=== PATIENT | female | born 1935 | race Caucasian/White ===

== ENCOUNTER → 2016-07-18 | Outpatient (CLI) | payer MEDICARE ==
[2016-07-18 10:00] LABS: ALT 20 U/L (9-52); AST 22 U/L (14-36); Alkaline Phosphatase 90 U/L (38-126); Anion Gap 11 mmol/L; Blood Urea Nitrogen 17 mg/dL (7-17); Calcium 9.5 mg/dL (8.4-10.2); Carbon Dioxide 26 mmol/L (22-30); Chloride 104 mmol/L (98-107); Cholesterol 244 mg/dL (<200); Glucose 95 mg/dL (74-99); HDL Cholesterol 48 mg/dL (40-60); Non-African American GFR(MDRD) >60 (>60 ml/min/1.73 sqM); Potassium 4.4 mmol/L (3.5-5.1); Sodium 141 mmol/L (137-145); Total Protein 6.9 g/dL (6.3-8.2); Triglycerides 220 mg/dL (<150)
== END | disposition home or self-care (01) ==
LOC: LABWHC1 08:58
PROVIDERS: ATTEND Internal Medicine
DX: Z00.00 Encounter for general adult medical examination without abnormal findings (principal)
CPT/HCPCS: 36415; 80053; 80061

== ENCOUNTER → 2016-09-13 | Outpatient (CLI) | payer MEDICARE ==
--- NOTE | 2016-09-13 13:23 | XR ---
EXAMINATION TYPE: XR cervical spine comp DATE OF EXAM: 09/13/2016 1:16 PM COMPARISON: NONE HISTORY: Pain TECHNIQUE: Four views are submitted. This includes flexion and extension lateral views. FINDINGS: The odontoid is intact. There are no compression deformities. The prevertebral soft tissue structur es are within normal limits. Diffuse osteopenia noted. Calcifications overlying the upper chest bila terally. Underlying COPD suspected. Prominence of the right paratracheal suprahilar region noted. Calcification soft tissue the neck likely vascular. There is a 2 mm anterolisthesis of C4 on C5 with findings suggestive of fusion and C5-C6. Moderate de generative disc disease C3-4 and C4-C5. Severe facet arthropathy at levels C3-C6. Alignment is demonstrated to the level of C7. There is nonspecific truncation of the spinous process of C3. IMPRESSION: 1. Postsurgical change with multilevel degenerative disc disease and severe facet arthropathy. Sergei listhesis of C4 on 5 and appears stable on flexion and extension.
== END | disposition home or self-care (01) ==
LOC: RADXRMAIN 12:57
PROVIDERS: ATTEND Psychiatry & Neurology Neurology
DX: M43.12 Spondylolisthesis, cervical region (principal); M50.30 Other cervical disc degeneration, unspecified cervical region; M46.82 Other specified inflammatory spondylopathies, cervical region; Z98.1 Arthrodesis status
CPT/HCPCS: 72050

== ENCOUNTER → 2016-11-25 | Outpatient (CLI) | payer MEDICARE ==
[2016-11-25 12:22] LABS: Blood Urea Nitrogen 16 mg/dL (7-17); Non-African American GFR(MDRD) >60 (>60 ml/min/1.73 sqM)
== END | disposition home or self-care (01) ==
LOC: LABWHC1 11:21
PROVIDERS: ATTEND Orthopaedic Surgery Orthopaedic Surgery of the Spine
DX: Z01.818 Encounter for other preprocedural examination (principal)
CPT/HCPCS: 36415; 82565; 84520

== ENCOUNTER → 2016-12-12 | Outpatient (CLI) | payer MEDICARE ==
[2016-12-12 11:33] LABS: Basophils # (A) 0.1 k/uL (0-0.2); Basophils % (A) 1 %; CH 31.2; CHCM 33.1; Eosinophils # (A) 0.3 k/uL (0-0.7); Eosinophils % (A) 3 %; HCT 43.2 % (34.0-46.0); HDW 2.21; HGB 13.9 gm/dL (11.4-16.0); Luc # (Auto) 0.18; Luc % (Auto) 2; Lymphocytes # (A) 1.2 k/uL (1.0-4.8); Lymphocytes % (A) 13 %; MCH 30.4 pg (25.0-35.0); MCHC 32.2 g/dL (31.0-37.0); MCV 94.6 fL (80.0-100.0); Mean Platelet Volume 7.7; Monocytes # (A) 0.5 k/uL (0-1.0); Monocytes % (A) 5 %; Neutrophils # (A) 7.1 k/uL (1.3-7.7); Neutrophils % (A) 77 %; RBC 4.57 m/uL (3.80-5.40); RDW 13.7 % (11.5-15.5); WBC 9.2 k/uL (3.8-10.6); WBC (Perox) 9.23
[2016-12-12 16:04] LABS: Erythrocyte Sedimentation Rate 20 mm/hr (0-20)
== END | disposition home or self-care (01) ==
LOC: LABWHC1 11:09
PROVIDERS: ATTEND Physical Medicine & Rehabilitation
DX: M50.220 Other cervical disc displacement, mid-cervical region, unspecified level (principal); M50.120 Mid-cervical disc disorder, unspecified level; M47.812 Spondylosis without myelopathy or radiculopathy, cervical region; M43.12 Spondylolisthesis, cervical region; M43.22 Fusion of spine, cervical region
CPT/HCPCS: 36415; 85025; 85652; 86140

== ENCOUNTER → 2017-12-22 | Outpatient (CLI) | payer MEDICARE | END | disposition home or self-care (01) | LOC: LABWHC1 12:58 | PROVIDERS: ATTEND Psychiatry & Neurology Neurology | DX: M62.81 Muscle weakness (generalized) (principal) | CPT/HCPCS: 36415; 82550; 85652 ==

== ENCOUNTER → 2018-07-09 | Outpatient (CLI) | payer MEDICARE | END | disposition home or self-care (01) | LOC: RADMRIMAIN 13:49 | PROVIDERS: ATTEND Psychiatry & Neurology Neurology | DX: Z53.9 Procedure and treatment not carried out, unspecified reason (principal) ==

== ENCOUNTER → 2018-07-17 | Outpatient (CLI) | payer MEDICARE ==
--- NOTE | 2018-07-17 13:05 | MR ---
EXAMINATION TYPE: MR cervical spine wo/w con DATE OF EXAM: 07/17/2018 COMPARISON: 09/13/2016 cervical spine x-rays HISTORY: Myelopathy, 4th finger trigger finger, Numbness in lt foot, Kush UE numbness and tingling TECHNIQUE: Multiplanar, multisequence images of the cervical spine were acquired utilizing 7 mL intravenous Gada vist gadolinium contrast. Diffusion weighted imaging was performed. FINDINGS: There is osseous fusion of the C5 and C6 vertebral bodies. Again there is 1 to 2 mm grade 1 anterolisthesis of C4 on C5. Remainder the alignment within the cervical spine is maintained. Bone m arrow signal is within normal limits. Incidentally noted partially empty sella turcica. Multilevel di sc desiccation is seen. C2-C3: There is a left paracentral disc herniation and ligamentum flavum buckling creating moderate s edna canal stenosis without neural foraminal narrowing. C3-C4: There is ligamentum flavum buckling and a central disc osteophyte complex creating moderate to severe spinal canal stenosis. Uncovertebral hypertrophy and facet arthropathy is additionally create moderate bilateral neural foraminal narrowing. C4-C5: There is a broad-based disc bulge, ligamentum flavum buckling and central disc osteophyte comp sha in combination with facet arthropathy and uncovertebral hypertrophy creating moderate right and s evere left neural foraminal narrowing and moderate spinal canal stenosis. C5-C6: There is surgical fusion and no remaining intervertebral discs. Elongated small osteophyte is seen posterior to the C5 and C6 vertebral bodies creating mild spinal canal stenosis. C6-C7: There is ligamentum flavum buckling and a broad-based disc bulge as well as central disc osteo phyte complex creating severe spinal canal stenosis and moderate to severe bilateral neural foraminal narrowing. C7-T1: There is mild disc desiccation without spinal canal stenosis nor neural foraminal narrowing. Degenerative disc disease is seen at T2-T3, T3-T4 and T4-T5 although suboptimally visualized as this is only seen on the sagittal view. No abnormal spinal cord signal is appreciated within the upper cervical spine however at C6-C7 there is subtle hyperintensity within the spinal cord at C6-C7 where there is severe spinal canal stenosis. There is no abnormal enhancement or expansion of the cord therefore this relates to mild myelomalaci a and cord atrophy. No abnormal postcontrast enhancement is seen throughout the cervical spine although the postcontrast images are slightly limited by motion. IMPRESSION: 1. Mild myelomalacia at C6-C7 as a result of a central disc osteophyte complex, broad-based disc bulg e, and extensive ligamentum flavum buckling. Degenerative change also contributes to moderate to diego re bilateral neural foraminal narrowing at this levels. 2. Left paracentral disc herniation at C2-C3 creating moderate spinal canal stenosis. 3. Severe spinal canal stenosis with moderate bilateral neural foraminal narrowing at C3-C4 created b y ligamentum flavum buckling and a broad-based disc bulge. 4. Osseous fusion at C5-C6 with elongated osteophyte creating mild spinal canal stenosis. 5. Moderate spinal canal stenosis, moderate right neural foraminal narrowing and severe left neural f oraminal narrowing at C4-C5 secondary to ligamentum flavum buckling and a broad-based disc bulge with degenerative change. 6. Stable minimal grade 1 anterolisthesis of C4 and C5.
== END | disposition home or self-care (01) ==
LOC: RADMRIMAIN 11:45
PROVIDERS: ATTEND Psychiatry & Neurology Neurology
DX: M48.02 Spinal stenosis, cervical region (principal); M50.01 Cervical disc disorder with myelopathy, high cervical region; M47.12 Other spondylosis with myelopathy, cervical region; G95.89 Other specified diseases of spinal cord; M43.12 Spondylolisthesis, cervical region
CPT/HCPCS: 72156; A9585

== ENCOUNTER → 2018-09-20 | Outpatient (CLI) | payer MEDICARE | END | disposition home or self-care (01) | LOC: LABWHC1 09:58 | PROVIDERS: ATTEND Physician Assistant | DX: E87.5 Hyperkalemia (principal) | CPT/HCPCS: 36415; 84132 ==

== ENCOUNTER → 2018-12-17 | Outpatient (CLI) | payer MEDICARE ==
--- NOTE | 2018-12-17 18:41 | MR ---
EXAMINATION TYPE: MR brain wo con DATE OF EXAM: 12/17/2018 COMPARISON: NONE HISTORY: Cerebral infarction, rt hand numbness TECHNIQUE: T1-weighted sagittal, T2, FLAIR, and diffusion axial, and T2 coronal coronal views of the brain are submitted. FINDINGS: There is no evidence of acute ischemia. There is a 1 cm left parotid soft tissue nodule which ultraso und is recommended. Signal noted within the petrous ridge on the left is stable from the prior exam of 2012 Changes of chronic sinusitis noted. [id number] generalized degenerative changes seen. There is both diffuse and numerous focal areas of abnormal signal seen scattered throughout the white matter b ilaterally which demonstrates mild to moderate progression from the prior exam. Hyperostosis of the c alvarium noted. Craniocervical junction maintained. Sella turcica has a normal appearance. No cerebellopontine angle mass. IMPRESSION: 1. No acute intracranial process. 2. Degenerative and nonspecific white matter changes most typical of remote white matter ischemia enoch ears to demonstrate a mild to moderate progression from the prior exam. 3. Stable petrous apex lesion unchanged from the prior exam which may be on the basis of a cholestero l granuloma or petrous apicitis 4. There is a new 1 cm left parotid mass for which ultrasound ps suggested.
== END | disposition home or self-care (01) ==
LOC: RADMRIMAIN 17:06
PROVIDERS: ATTEND Internal Medicine
DX: R90.89 Other abnormal findings on diagnostic imaging of central nervous system (principal); G93.9 Disorder of brain, unspecified
CPT/HCPCS: 70551

== ENCOUNTER → 2019-01-24 | Outpatient (CLI) | payer MEDICARE ==
--- NOTE | 2019-01-25 10:10 | US ---
EXAMINATION TYPE: US thyroid st tissue head/neck DATE OF EXAM: 01/24/2019 COMPARISON: NONE CLINICAL HISTORY: R22.1 SWELLING,MASS AND LUMP OF NECK. TECHNIQUE: Targeted ultrasound was performed of the left parotid region with right parotid region sca n for comparison. Grayscale and color flow were obtained. FINDINGS: Within the region of the left parotid gland there is a peripherally solid and centrally cys tic mass with internal vascular flow measuring 1.2 x 1.0 x 1.1 cm. This does not have a typical appea nathaniel of a lymph node and is a suspicious mass. This is superficially located just beneath the dermis . This does not appear to extend into the skin surface. Remainder of the parotid gland appears unrema rkable. 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 Percutaneous biopsy co uld be performed. CT neck could be performed prior to biopsy for better anatomic delineation as it is uncertain the relation to the remainder of the parotid gland.
== END | disposition home or self-care (01) ==
LOC: RADUSWWP 16:01
PROVIDERS: ATTEND Internal Medicine
DX: K11.8 Other diseases of salivary glands (principal)
CPT/HCPCS: 76536

== ENCOUNTER → 2019-02-21 | Outpatient (CLI) | payer MEDICARE ==
--- NOTE | 2019-02-22 13:15 | CT ---
EXAMINATION TYPE: CT soft tissue neck w con DATE OF EXAM: 02/21/2019 COMPARISON: None HISTORY: Left side neck/facial mass and swelling. BB placed on region of interest. CT DLP: 328.7 mGycm CONTRAST: Patient injected with 100ml mL of Isovue 300. TECHNIQUE: Axial images at 3 mm thick sections. Reconstructed images in the coronal plane and sagitt al plane are reviewed. FINDINGS: Limited CT sections are obtained the lung apices. The lung apices appear clear. CT neck: The torus tubarius and fossa of Rosenmuller are normal. Lead Relay Tester spaces are normal. Para nasal sinuses and mastoid air cells are clear. At the level marked by the BB there appears to be a 1.1 cm ring lesion just posterior to the masticat or muscles and anterior to the parotid gland. A large lymph node is likely present at this level. No additional suspicious adenopathy is evident. Parotid glands appear normal and symmetrical. Submandibular glands, are normal. Parapharyngeal spac es are normal. No suspicious adenopathy is evident. The hypopharynx appears within normal limits. Vocal cord level appear symmetrical. Thyroid as visualized is normal. Osseous structures are normal. IMPRESSIONS: 1. Enlarged lymph node on the left neck at the level of palpable abnormality.
== END | disposition home or self-care (01) ==
LOC: RADCTMAIN 16:35
PROVIDERS: ATTEND Otolaryngology
DX: R59.9 Enlarged lymph nodes, unspecified (principal)
CPT/HCPCS: 82565; 84520; 70491; 36415; Q9967

== ENCOUNTER 2019-05-03 08:43 | Day surgery (SDC) | payer MEDICARE ==
[2019-05-01 12:00] VITALS: BMI 25.4
--- NOTE | 2019-05-03 01:58 | HP ---
HISTORY AND PHYSICAL CHIEF COMPLAINT: Left facial mass. HISTORY OF PRESENT ILLNESS: Patient is a pleasant 83-year-old female who was recently seen in my office complaining of having swelling in the left side of her face, which had been there for at least several weeks. She described the area as nontender. At the time that she was seen in my office she had a previous MRI and ultrasound, which showed that the mass was solid. Clinical examination of the area revealed that the patient on the left side of the face in the region of the left parotid gland had approximately 1-1.1 cm mass, which was nontender, non fluctuant and quite mobile. A CT scan of the neck was subsequently obtained and it revealed the mass to be most likely superficial to the left parotid gland. Therefore, it was recommended the patient undergo excision of left facial/parotid mass under general anesthesia. PAST MEDICAL HISTORY: Past medical history reveals: ALLERGY: TO CIPRO. MEDICATION: Her current medications include Synthroid, Combivent, gabapentin, and baclofen. REVIEW OF SYMPTOMS: Reveals the cardiovascular systems is negative. RESPIRATORY SYSTEM: Is positive for COPD. Gastrointestinal system is negative. Metabolic/endocrine system is positive for hypothyroidism. MUSCULOSKELETAL SYSTEM is positive osteoarthritis. The remainder of the review of systems is unremarkable. PHYSICAL EXAMINATION: This patient is a very pleasant 83-year-old female who is alert, cooperative and well- oriented to time and place. HEENT examination the patient is normocephalic. Tympanic membranes are normal. Middle ear spaces are free of any fluid or infection. Pupils equal, round, and reactive to light and accommodation. Extraocular movements within normal limits. Intranasal examination reveals moderate to severe septal deviation, compensatory hypertrophy of the inferior turbinates. Examination of oropharynx unremarkable. Examination of left facial area with attention to the left parotid region reveals the patient has a 1-1.5 cm, well-circumscribed, mobile, nontender, nonfluctuant mass located over the central area of the left parotid gland. No other associated neck masses are noted. Cranial nerves 2 through 12 and the remainder of the head and neck exam are within normal limits. Chest/cardiovascular: Both lung lund are clear to percussion and auscultation. The patient is in regular sinus rhythm, S1 and S2 are present without evidence of any murmurs S3s or S4. Peripheral pulses are bilaterally symmetrical. ABDOMEN: There is no evidence any masses, megaly or tenderness. ABDOMEN: Soft. Skin is unremarkable. Musculoskeletal, and neurological within normal limits. Pelvic/rectal examination is deferred at this time because the patient has this done on a regular basis at her family physician's office. The remainder of the physical exam is essentially unremarkable. IMPRESSION: Left facial/parotid mass. PLAN: The patient is scheduled undergo excision of left facial/parotid mass under general anesthesia. Attention RNs in the pre-surgical area: I have ordered for this patient to receive 2 g of Ancef IV to be given once an intravenous line has been established. If the pharmacy department sends a different pre-surgical prophylactic antibiotic to the pre-surgical area for this patient, that order should be cancelled and the medication should be returned to the pharmacy department and make sure that the patient's account is credited appropriately. In addition, I have ordered for the patient to receive 1000 mg of Ofirmev to be given once an intravenous line has been established. I have discussed the risks, benefits and alternative therapies for the above-mentioned procedure and for both sedation/analgesia as well as necessary blood product administration, if indicated, as they pertain to this patient. The patient has indicated his or her understanding and acceptance of the risks and procedures discussed. MMODL / IJN: [id number] /
[~2019-05-03 08:43] MED LIST: DEXAMETHASONE SOD PHOSPHATE 10 MG/ML 1 ML VIAL IV ONE; HYDROmorphone 0.5 MG/0.5 ML SYRINGE IVP PRN; LACTATED RINGERS 1,000 ML IV SCH; MIDAZOLAM 2 MG/2 ML VIAL IV PRN; ONDANSETRON 4 MG/2 ML VIAL IVP ONE; Pre Op ABX Message 1 EACH MISC MISCELLANE ONE
[2019-05-03] MEDS ORDERED: ACETAMINOPHEN IV (For NPO) 1,000 MG in EMPTY BAG 1 BAG IVPB ONE (09:45)
[2019-05-03] MEDS ORDERED: GLYCOPYRROLATE 0.2 MG/ML 2 ML VIAL ONE (09:56)
[2019-05-03] MEDS ORDERED: NEOSTIGMINE 1 MG/ML 10 ML VIAL ONE (09:56)
[2019-05-03] MEDS ORDERED: PROPOFOL 10 MG/ML 20 ML VIAL IV ONE (09:56)
[2019-05-03] MEDS ORDERED: LIDOCAINE 1% INJ 10MG/ML (20 ML MDV) ONE (09:56)
[2019-05-03] MEDS ORDERED: SUCCINYLCHOLINE CHLORIDE 100 MG/5 ML SYR IV ONE (09:56)
[2019-05-03] MEDS ORDERED: ROCURONIUM BROMIDE 10 MG/ML 10 ML VIAL IV ONE (09:56)
[2019-05-03] MEDS ORDERED: fentaNYL (PF) 50 MCG/ML 2 ML AMP ONE (09:56)
[2019-05-03] MEDS ORDERED: ePHEDrine SULFATE/0.9% NACL/PF 50 MG/5 ML SYRINGE IV ONE (09:56)
[2019-05-03] MEDS ORDERED: BACITRACIN 500 UNIT/GM OINT 28.4 GM TUBE TOPICAL ONE (11:47)
[2019-05-03] MEDS ORDERED: LACTATED RINGERS 1,000 ML IV ONE (12:03)
[2019-05-03 12:29] VITALS: TEMP 97.6
[2019-05-03 13:12] VITALS: RESP 16
[2019-05-03 13:50] VITALS: PULSE 62
[2019-05-03 13:51] VITALS: BP 139/82
--- NOTE | 2019-05-07 05:09 | OP ---
OPERATIVE REPORT DATE OF SERVICE: 05/03/2019 PREOPERATIVE DIAGNOSIS: Left facial/parotid mass. POSTOPERATIVE DIAGNOSIS: Left facial/parotid mass (approximately 1.5 cm in diameter), final pathology pending. ANESTHESIA: General. OPERATIVE PROCEDURE: Excision of left facial/parotid gland mass (1.5 cm). OPERATING SURGEON: Dr. Wayne. COMPLICATIONS: None. ESTIMATED BLOOD LOSS: Less than 25 mL. OPERATIVE PROCEDURE: Patient was placed on the operating table in the supine position. After uneventful induction and endotracheal intubation, satisfactory general anesthesia was obtained. Next, the patient's left magdiel face was prepped and draped down to the level of the clavicles. The lesion in question was palpated and the proposed incision was outlined using a [employer] marking pen so as to place the incision in one of the patient's natural resting skin tension line. Doing so should afford the best cosmetic result on the face. The proposed incision was outlined in an elliptical fashion. This was done so that the overlying skin would be left attached to the underlying mass and could be used to maneuver the mass and aid with excision. Next, using a #15 scalpel, incision was made through skin down to the level of the subcutaneous tissue following the previously outlined incision. Hemostasis was controlled with low wattage electrocautery at all times. Next, using combination of blunt and sharp dissection with mosquito hemostats and peanuts, the dissection was obtained continued down below the subcutaneous tissue into the subcutaneous fat down to the level of the fascia that was investing the mass. The fascia was carefully dissected away from the mass down to the level of the masseter muscle. The dissection was carried out initially superiorly, working deeply and around the mass in the usual and customary fashion. Any bleeders that were encountered were lightly cauterized with electrocautery. The dissection was quite slow and tedious because there was some inflammatory response around the mass which caused it to be somewhat adherent to the surrounding fatty tissue. This dissection was slow, but continued in a very a cautious manner and the mass was subsequently excised with the overlying strip of skin in a complete fashion and the specimen was sent to pathology in formalin. Inspection revealed no active bleeding and the wound defect, which was quite deep, was irrigated using electrocautery. During this dissection, care was taken to make sure that no neural structures such as branches of the facial nerve were injured at any time. The facial nerve was known at this point to be quite deep to the mass that was excised. The size of mass was approximately 1.5 cm. The wound defect was closed in multiple layers using a 4-0 rapid absorbing Vicryl to reapproximate the deep layers of tissue in the fascial layers of tissue. Muscle layers were reapproximated using another layer of 4-0 rapid absorbing Vicryl suture. Next, the subcutaneous fat was approximated using 4-0 rapid absorbing Vicryl in an interrupted buried fashion. Next, the subcutaneous tissue and skin were approximated using interrupted 4-0 rapid absorbing Vicryl suture in a buried fashion. Having done the last layer of sutures, the skin edges approximated quite nicely. However, it was decided to put 2 sutures, one at the superior and inferior aspect of the incision. The inferior and superior closures were done with surgical justen with the inferior staple being applied somewhat loosely to allow for any potential drainage. Bacitracin ointment was applied to the incision and no dressing was applied. At this point, the procedure was terminated. Estimated blood loss was between 20 and 25 mL. There were no intraoperative complications. At no point were any neurological structures injured or traumatized. The specimen was sent to pathology in formalin. It is to be noted that this procedure which started approximately at 10:10 a.m. ended at approximately 12:15 for a total operating time of approximately 2 hours. The reason for the extended operating time was because of the slow dissection caused by the inflammatory response of this mass with the surrounding tissues. The patient tolerated the procedure well and was returned to the recovery room in satisfactory condition. Final pathology was pending. MMODL / IJN: [id number] /
== END 2019-05-03 14:03 | disposition home or self-care (01) ==
LOC: OR 08:43
PROVIDERS: ATTEND Otolaryngology
DX: D37.030 Neoplasm of uncertain behavior of the parotid salivary glands (principal); R22.0 Localized swelling, mass and lump, head; J44.9 Chronic obstructive pulmonary disease, unspecified; E03.9 Hypothyroidism, unspecified; M48.02 Spinal stenosis, cervical region; M19.90 Unspecified osteoarthritis, unspecified site; J34.2 Deviated nasal septum; J34.3 Hypertrophy of nasal turbinates; Z79.890 Hormone replacement therapy; Z79.899 Other long term (current) drug therapy; Z88.1 Allergy status to other antibiotic agents; Z98.890 Other specified postprocedural states; Z90.710 Acquired absence of both cervix and uterus; Z96.651 Presence of right artificial knee joint; Z96.641 Presence of right artificial hip joint
CPT/HCPCS: 42410; 88342; 88307; 88341; J1100; J2710; J2405; J2001; J3010; J0131; J0330; J2704; 88305

== ENCOUNTER → 2020-05-01 | Outpatient (CLI) | payer MEDICARE ==
[2020-05-01 13:43] LABS: African American GFR (CKD) >90 (>60 ml/min/1.73 sqM); Blood Urea Nitrogen 20 mg/dL (7-17); Non-African American GFR(CKD) 84 (>60 ml/min/1.73 sqM)
--- NOTE | 2020-05-01 14:37 | CT ---
EXAMINATION TYPE: CT soft tissue neck w con DATE OF EXAM: 05/01/2020 HISTORY: Swelling on left neck COMPARISON: CT neck February 21, 2019 CT DLP: 334.6 mGycm. Automated Exposure Control for Dose Reduction was Utilized. TECHNIQUE: CT scan of the neck is performed with IV Contrast, patient injected with 100 ml mL of Iso leeanna 300, axial images are obtained, coronal and sagittal reformatted images are reviewed. FINDINGS: Airway: No gross abnormality seen. Parotid/submandibular glands: No gross abnormality seen. Carotid/Vascular Structures: Moderate to severe mixed plaque right carotid bulb. More mild plaque lef t carotid bulb. No significant stenosis clearly seen. No significant change from prior. Osseous Structures: There is S shaped scoliosis redemonstrated. Ossific fusion of the C5 and C6 verte bra. Mild to moderate disc space narrowing C4-C5 level redemonstrated. Moderate to severe disc space narrowing C6-C7 level C7-T1 level redemonstrated. [id number] multilevel spurring and disc space narrowing in the upper thoracic spine redemonstrated. Posterior decompression in the upper cervical spine again seen. Multilevel uncovertebral facet degenerative changes bilaterally are redemonstrated. Other: On current study at site of prior 1.1 cm rim soft tissue dense lesion in the left anterior sub cutaneous tissue there is now smaller 6 mm round soft tissue nodule axial image 76. No surrounding in flammatory change. No new suspicious mass or greater than 1 cm adenopathy. IMPRESSION: As above. Area of concern shows interval decrease in size and loss of central hypodense o r fluid component. Lesion of uncertain etiology but favored benign. Dermatologic lesion is in differe ntial. Consider imaging follow-up if this lesion becomes painful or enlarges.
== END | disposition home or self-care (01) ==
LOC: RADCTMAIN 12:57
PROVIDERS: ATTEND Otolaryngology
DX: M99.71 Connective tissue and disc stenosis of intervertebral foramina of cervical region (principal); M41.82 Other forms of scoliosis, cervical region; M47.812 Spondylosis without myelopathy or radiculopathy, cervical region; I65.23 Occlusion and stenosis of bilateral carotid arteries; M79.89 Other specified soft tissue disorders; Z98.1 Arthrodesis status
CPT/HCPCS: 82565; 84520; 70491; 36415; Q9967

== ENCOUNTER → 2020-12-07 | Outpatient (CLI) | payer MEDICARE ==
[2020-12-07 13:29] LABS: African American GFR (CKD) >90 (>60 ml/min/1.73 sqM); Blood Urea Nitrogen 18 mg/dL (7-17); Non-African American GFR(CKD) 85 (>60 ml/min/1.73 sqM)
--- NOTE | 2020-12-07 14:49 | CT ---
EXAMINATION TYPE: CT soft tissue neck w con DATE OF EXAM: 12/07/2020 2:03 PM COMPARISON: 05/01/2020 HISTORY: Lt side of neck CT DLP: 297.8 mGycm Automated exposure control for dose reduction was used. CONTRAST: CT scan of the neck is performed following with IV Contrast, patient injected with 100 mL of Isovue 3 00. Axial images are obtained, coronal and sagittal reformatted images are reviewed. FINDINGS: Airway: No gross abnormality seen. Parotid/submandibular glands: No gross abnormality seen. Carotid/Vascular Structures: Moderate to severe mixed plaque right carotid bulb. More mild plaque lef t carotid bulb. No significant stenosis clearly seen. No significant change from prior. Osseous Structures: There is S shaped scoliosis redemonstrated. Ossific fusion of the C5 and C6 verte bra. Mild to moderate disc space narrowing C4-C5 level redemonstrated. Moderate to severe disc space narrowing C6-C7 level C7-T1 level redemonstrated. [id number] multilevel spurring and disc space narrowing in the upper thoracic spine redemonstrated. Posterior decompression in the upper cervical spine again seen. Multilevel uncovertebral facet degenerative changes bilaterally are redemonstrated. Other: There is a 9 mm soft tissue nodule increased in size from prior exam along the left subcutaneo us subcutaneous tissues of the face. No surrounding inflammatory change. No new suspicious mass or gr eater than 1 cm adenopathy. There is a 6 mm hyperdense nodule involving the right thyroid. IMPRESSION: 1. Interval increase in size of the subcutaneous mass within the palpable abnormality is of the left face. 2. Subcentimeter right thyroid nodules.
== END | disposition home or self-care (01) ==
LOC: RADCTMAIN 12:34
PROVIDERS: ATTEND Otolaryngology
DX: R22.1 Localized swelling, mass and lump, neck (principal); E04.2 Nontoxic multinodular goiter
CPT/HCPCS: 82565; 84520; 70491; 36415; Q9967

== ENCOUNTER 2021-04-30 08:21 | Day surgery (SDC) | payer MEDICARE ==
[2021-04-23 12:31] VITALS: BMI 25.7
--- NOTE | 2021-04-29 18:54 | HP ---
HISTORY AND PHYSICAL CHIEF COMPLAINT: Multiple left facial masses. HISTORY OF PRESENT ILLNESS: This patient is a very pleasant 85-year-old female who was recently seen in my office for followup for evaluation of multiple left facial masses. 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 We will follow the patient closely for this with the knowledge that it most likely would return. The patient has been referred to [facility] and at that time they agreed with our assessment that she would benefit from a left superficial parotidectomy. However, the patient felt because of her age that she would prefer not to have that procedure performed. Therefore, in April of 2019 we simply removed the solitary lesion that was present. She has been seen on multiple occasions since that time, and it was noted that a second lesion had occurred. Unfortunately, over the past several months the lesion has increased in size. It is now approximately 1 cm in size and there is also a satellite lesion which is approximately 0.5 cm in size located just inferior to the main mass. It was therefore recommend the patient undergo excision of these lesions under general anesthesia. PAST MEDICAL HISTORY: Reveals that the patient has ALLERGY to CIPRO and LEVAQUIN HER CURRENT MEDICATIONS: Include Synthroid, Combivent, gabapentin, baclofen and a multiple vitamin. REVIEW OF SYSTEMS: Cardiovascular system is negative. 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 Metabolic/endocrine system is positive for hypercholesterolemia and hypothyroidism. Musculoskeletal system is positive for osteoarthritis. PREVIOUS SURGERIES: Include local excision of left facial mass, right arthroscopic hip surgery, right arthroscopic knee surgery, anterior and posterior cervical laminectomy, tonsillectomy, adenoidectomy, appendectomy, colonoscopy, total abdominal hysterectomy, and removal of a pituitary tumor. The patient is a nonsmoker. PHYSICAL EXAMINATION: The patient is a very pleasant 85-year-old female who is alert, cooperative and well- oriented to time and place. HEENT examination: Patient is normocephalic. Tympanic membranes are normal. Middle ear spaces are free of any fluid or infection. Pupils equal, round, reactive to light and accommodation. Extraocular movements within normal limits. Intranasal examination reveals moderate to severe septal deviation with compensatory hypertrophy of the inferior turbinates and a moderate amount of clear mucus on the mucous membranes and draining down down the posterior pharynx. Examination of oropharynx is unremarkable. Examination of the facial skin with attention to the left side of the face reveals the patient has two solitary lesions. The greater lesion which is located superiorly is approximately 1-1.2 cm in its greatest dimension, slightly mobile, nontender and nonfluctuant. The second lesion which is inferior to the primary lesion is 0.5 cm and is also slightly mobile, nontender and nonfluctuant. No other suspicious neck mass or lymphadenopathy is noted and the remainder of the head and neck exam is within normal limits. CHEST/CARDIOVASCULAR: Both lung lund are clear to percussion and auscultation. The patient is in regular sinus rhythm. S1 and S2 are present without evidence of any murmurs, S3s or S4s. Peripheral pulses are bilaterally symmetrical and within normal limits. ABDOMEN: There is no evidence of any masses megaly or tenderness. The abdomen is soft. SKIN: Unremarkable. MUSCULOSKELETAL AND NEUROLOGICAL: Within normal limits. PELVIC/RECTAL EXAMINATION: The pelvic/rectal exam is deferred at this time because the patient has this done on a regular basis at her family physician's office. The remainder of the physical exam is unremarkable. IMPRESSION: Left multiple facial masses. PLAN: The patient is scheduled to undergo excision of left facial masses under general anesthesia in the a.m. Attention RNs in the pre-surgical area: I have ordered for this patient to receive 1000 mg of Ofirmev IV to be given once an intravenous line has been established. In addition, as a pre-surgical prophylactic antibiotic I have ordered for her to receive 3 g of Ancef IV once an intravenous line has been established. If the pharmacy department sends a different pre-surgical prophylactic antibiotic to the pre-surgical area for this patient, please cancel that order, return the medication to the pharmacy department, and make sure that the patient's account is credited appropriately. I have discussed the risks, benefits and alternative therapies for the above-mentioned procedure and for both sedation/analgesia as well as necessary blood product administration, if indicated, as they pertain to this patient. The patient has indicated his or her understanding and acceptance of the risks and procedures discussed. MMODL / IJN: [id number] /
[~2021-04-30 08:21] MED LIST changes: -DEXAMETHASONE SOD PHOSPHATE 10 MG/ML 1 ML VIAL IV ONE; -HYDROmorphone 0.5 MG/0.5 ML SYRINGE IVP PRN; -MIDAZOLAM 2 MG/2 ML VIAL IV PRN; +fentaNYL (PF) 50 MCG/ML 2 ML AMP IV PRN
[2021-04-30] MEDS ORDERED: ACETAMINOPHEN IV (For NPO) 1,000 MG/100 ML VIAL IVPB ONE (08:58)
[2021-04-30] MEDS ORDERED: ACETAMINOPHEN IV (For NPO) 1,000 MG in EMPTY BAG 1 BAG IVPB ONE (09:45)
[2021-04-30] MEDS ORDERED: ceFAZolin 3 GM in SODIUM CHLORIDE 0.9% 100 ML IVPB ONE (09:45)
[2021-04-30] MEDS ORDERED: fentaNYL (PF) 50 MCG/ML 2 ML AMP ONE (10:11)
[2021-04-30] MEDS ORDERED: SUCCINYLCHOLINE CHLORIDE 100 MG/5 ML SYR IV ONE (10:11)
[2021-04-30] MEDS ORDERED: PROPOFOL 10 MG/ML 20 ML VIAL IV ONE (10:11)
[2021-04-30] MEDS ORDERED: ROCURONIUM 10 MG/ML (5 ML VIAL) IV ONE (10:11)
[2021-04-30] MEDS ORDERED: GLYCOPYRROLATE 0.2 MG/ML 2 ML VIAL ONE (10:11)
[2021-04-30] MEDS ORDERED: PHENYLEPHRINE-0.9% NACL SYG 1,000 MCG/10 ML SYRINGE ONE (10:11)
[2021-04-30] MEDS ORDERED: NEOSTIGMINE 1 MG/ML 10 ML VIAL ONE (10:11)
[2021-04-30] MEDS ORDERED: LIDOCAINE 1% INJ 10MG/ML (20 ML MDV) ONE (10:11)
[2021-04-30] MEDS ORDERED: ePHEDrine 50 MG/ML 1 ML AMP ONE (10:11)
[2021-04-30] MEDS ORDERED: LIDOCAINE 0.5%-EPI 1:200,000 50 ML VIAL SQ ONE (11:05)
[2021-04-30] MEDS ORDERED: BACITRACIN ZINC 500 UNIT/GM OINT 28.4 GM TUBE TOPICAL ONE (11:05)
[2021-04-30 12:53] VITALS: TEMP 97.2
[2021-04-30 13:30] VITALS: RESP 20
[2021-04-30 13:46] VITALS: BP 127/66; PULSE 57
[2021-04-30] MEDS ORDERED: BACITRACIN OINT 1 EACH PACKET TOPICAL ONE (14:39)
--- NOTE | 2021-05-01 06:08 | OP ---
OPERATIVE REPORT DATE OF SERVICE: 04/30/2021 PREOP DIAGNOSIS: Left facial tumor. POSTOPERATIVE DIAGNOSIS: Left facial tumor approximately 1.5 cm by 1 cm in size, final pathology pending, probable adenoma. ANESTHESIA: General. OPERATIVE PROCEDURE: Excision of large facial tumor with complex multiple air closure. OPERATING SURGEON: Dr. Wayne. COMPLICATIONS: None. ESTIMATED BLOOD LOSS: Less than 25 mL. OPERATIVE PROCEDURE: The patient was placed on the operating table in supine position. After uneventful induction and endotracheal intubation, satisfactory general anesthesia was obtained. Next, the patient's left magdiel face was prepped and draped in the usual and customary fashion. Examination of the patient's patient revealed that she had a large 1.5 x 1 cm tumor located just anterior to the left tragus. Approximately 2 cm inferior to this, the patient had a much smaller tumor which was approximately 4 mm in diameter. It was elected to take the larger facial tumor only. The proposed incision over the larger left facial tumor was outlined using a [employer] marking pen in an 18 elliptical fashion. No local anesthesia was used because of the location of the left facial nerve. Next using a number a #15 scalpel the proposed incision was outlined in such a fashion as to try to fall in 1 of the patient's natural skin crease skin lines. However, because of the orientation of the tumor, this was not 100% possible. This was an oblong tumor and it fell slightly out of 1 of the natural facial skin lines. In order to excise it in 1 of the facial skin lines (Pérez's lines) it would have required excision of a much larger amount of tissue. Therefore, using a #15 scalpel blade, an incision was done in superior aspect of the tumor and was carried initially through skin only in the usual fashion. Next, the incision was further completed going to skin down to the subcutaneous tissue. Next, using combination of blunt and sharp dissection with the 15 scalpel, a sharp and a blunt mosquito hemostats, the elliptical piece of tissue was gradually dissected from the underlying soft tissue and muscle. The skin overlying the tumor mass was used to retract the tumor. The tumor extended down to the level of the superficial fascia of the left parotid gland. The dissection was somewhat slow and tedious because there was an inflammatory response to this mass. Bleeders that were encountered were cauterized using a bipolar or pressure. Electrocautery was avoided as much as possible because of the location of the facial nerve. The mass was eventually dissected from the underlying soft tissue and fatty tissue and was delivered along with the overlying skin after it complete excision. Specimen was sent to pathology in formalin for permanent sectioning. Hemostasis was controlled by using the bipolar for any obvious bleeders and again by applying pressure. This wound defect was closed in 3/multiple layers. That is to say it was a complex closure. The deep fascia layers were closed using 5-0 Vicryl in interrupted buried fashion. Next, the subcutaneous fatty tissues were closed again using 5-0 Vicryl in an interrupted buried fashion. The skin was approximated using 4-0 and 5-0 rapid absorbing Vicryl in interrupted buried fashion. Several 4-0 chromic sutures were used to further finally approximate the skin edges. The remaining closure was done using surgical justen. In addition to this surgical skin glue was used in several areas. At the superior aspect of the wound, there was noted to be a very small dog tag which was left intentionally. At this point, the procedure was terminated. The specimen has been sent to Pathology for permanent sectioning. Estimated blood loss of less than 25 mL. There were no intraoperative complications. The total operating time was approximately 2.5 hours. The reason for the extended operating time was because of some of intense inflammatory reaction of the tumor mass to the surrounding tissue and also because of concern of the facial nerve. The patient tolerated the procedure well and was returned to the recovery room in satisfactory condition. Final pathology is pending. MMPINKYL / VIRGILN: [id number] /
== END 2021-04-30 14:42 | disposition home or self-care (01) ==
LOC: OR 08:21
PROVIDERS: ATTEND Otolaryngology
DX: D49.2 Neoplasm of unspecified behavior of bone, soft tissue, and skin (principal); J43.9 Emphysema, unspecified; E78.5 Hyperlipidemia, unspecified; E78.00 Pure hypercholesterolemia, unspecified; E03.9 Hypothyroidism, unspecified; M19.90 Unspecified osteoarthritis, unspecified site; M48.02 Spinal stenosis, cervical region; Z86.03 Personal history of neoplasm of uncertain behavior; Z79.890 Hormone replacement therapy; Z79.899 Other long term (current) drug therapy; Z88.1 Allergy status to other antibiotic agents
CPT/HCPCS: 21012; 88305; J2710; J0690; J2405; J2001; J3010; J0131; J2370; J0330; J2704

== ENCOUNTER 2022-05-06 09:17 | Day surgery (SDC) | payer MEDICARE ==
--- NOTE | 2022-05-05 19:22 | HP ---
HISTORY AND PHYSICAL CHIEF COMPLAINT: Left facial mass. HISTORY OF PRESENT ILLNESS: This patient is a very pleasant 86-year-old female, who is well known to my office. 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 This patient has been seen at the [facility] for these lesions in the past, and they had recommended a left superficial parotidectomy. However, the patient has felt because of her age that she would prefer not to have such a major procedure performed. Therefore, we have been removing these lesions as they return when they reach a substantial size. On a recent visit to the office, clinical examination of the left facial area revealed that the patient had 0.8 to 1 cm lesion located in the left facial area. This most likely represents recurrence of her previous lesions. We recommend that she undergo excision of this lesion under general anesthesia. PAST MEDICAL HISTORY: Reveals she has allergies to Cipro and to Levaquin. CURRENT MEDICATIONS: Include: 1. Baclofen. 2. Gabapentin. 3. Synthroid. 4. Combivent. The patient also takes multiple vitamins. REVIEW OF SYSTEMS: Reveals that, RESPIRATORY: Positive for COPD/emphysema. CARDIOVASCULAR: Negative. METABOLIC/ENDOCRINE: Positive for hypercholesterolemia and hypothyroidism. MUSCULOSKELETAL: Positive for osteoarthritis. The remainder of the review of systems is unremarkable. PREVIOUS SURGERIES: Include excision of left facial mass x2, right arthroscopic hip surgery, right arthroscopic knee surgery, anterior and posterior cervical laminectomy, tonsillectomy, adenoidectomy, appendectomy, colonoscopy, total abdominal hysterectomy, and removal of a pituitary tumor. SOCIAL HISTORY: The patient is a nonsmoker. PHYSICAL EXAMINATION: GENERAL: The patient is an 86-year-old female, who is alert, cooperative, and well- oriented to time and place. HEENT: The patient is normocephalic. Tympanic membranes are normal. Middle ear spaces are free of any fluid or infection. Pupils are equal, round, and react to light and accommodation. Extraocular movements are within normal limits. Intranasal examination reveals [id number] septal deviation to the left with bilateral compensatory hypertrophy of inferior turbinates. Examination of oropharynx is unremarkable. Examination of the left facial skin reveals the patient has 0.8 to 1 cm well-circumscribed slightly-mobile nontender nonfluctuant lesion. There appears to be a second satellite lesion, which is less than 0.3 cm in size and is located just posterior to the main lesion. No other suspicious neck masses or lesions or facial masses are noted. Palpation of the neck is negative for any neck adenopathy or lymphadenopathy. Cranial nerves 2 through 12 and the remainder of the head and neck exam are unremarkable. CHEST/CARDIOVASCULAR: Both lung lund are clear to percussion and auscultation. The patient is in regular sinus rhythm. S1 and S2 are present without evidence of any murmurs, S3s, or S4s. Peripheral pulses are bilaterally symmetrical and within normal limits. ABDOMEN: There is no evidence of any masses, megaly, or tenderness. The abdomen is soft. SKIN: Unremarkable. MUSCULOSKELETAL/NEUROLOGIC: All within normal limits. PELVIC/RECTAL: Deferred at this time because the patient has this done on a regular basis at her family physician's office. The remainder of the physical exam is unremarkable. IMPRESSION: Left facial mass. PLAN: The patient is scheduled to undergo excision of left facial mass under general anesthesia in a.m. Attention, RNs in the pre-surgical area: I have ordered for this patient to receive 1000 mg of Ofirmev IV to be given once an intravenous line has been established. In addition, as a pre-surgical prophylactic antibiotic, I have ordered for this patient to receive 2 g of Ancef once an intravenous line has been established. If the Pharmacy Department sends a different pre-surgical prophylactic antibiotic to the pre-surgical area for this patient, please cancel that order, return the medication to the Pharmacy, and make sure that the patient's account is credited appropriately. I have discussed the risks, benefits and alternative therapies for the above-mentioned procedure and for both sedation/analgesia as well as necessary blood product administration, if indicated, as they pertain to this patient. The patient has indicated her understanding and acceptance of the risks and procedures discussed. MMODL / IJN: [id number] /
[~2022-05-06 09:17] MED LIST changes: -LACTATED RINGERS 1,000 ML IV SCH; -ONDANSETRON 4 MG/2 ML VIAL IVP ONE; -fentaNYL (PF) 50 MCG/ML 2 ML AMP IV PRN
[2022-05-06] MEDS ORDERED: DEXAMETHASONE SOD PHOSPHATE 4 MG/ML 1 ML VIAL IV ONE (09:37)
[2022-05-06] MEDS ORDERED: ONDANSETRON 4 MG/2 ML VIAL IVP ONE ×2 (09:37→13:50)
[2022-05-06] MEDS ORDERED: HYDROmorphone 0.5 MG/0.5 ML SYRINGE IVP PRN (09:37)
[2022-05-06] MEDS ORDERED: MIDAZOLAM 2 MG/2 ML VIAL IV PRN (09:37)
[2022-05-06 09:45] VITALS: TEMP 97.5
[2022-05-06] MEDS ORDERED: ONDANSETRON 4 MG/2 ML VIAL ONE (09:46)
[2022-05-06] MEDS ORDERED: ACETAMINOPHEN IV (For NPO) 1,000 MG in EMPTY BAG 1 BAG IVPB ONE (10:30)
[2022-05-06] MEDS: LACTATED RINGERS 1,000 ML IV SCH ×2 (10:32→14:13)
[2022-05-06] MEDS ORDERED: ROCURONIUM 10 MG/ML (5 ML VIAL) IV ONE (11:04)
[2022-05-06] MEDS ORDERED: SUCCINYLCHOLINE CHLORIDE 200 MG/10 ML VIAL IV ONE (11:04)
[2022-05-06] MEDS ORDERED: SODIUM CHLORIDE 0.9% 100 ML BAG ONE (11:04)
[2022-05-06] MEDS ORDERED: fentaNYL (PF) 50 MCG/ML 2 ML AMP ONE (11:04)
[2022-05-06] MEDS ORDERED: LIDOCAINE 2% INJ 20 MG/ML (2 ML VIAL) ONE (11:04)
[2022-05-06] MEDS ORDERED: ePHEDrine 50 MG/ML 1 ML VIAL ONE (11:04)
[2022-05-06] MEDS ORDERED: PROPOFOL 10 MG/ML 20 ML VIAL IV ONE (11:04)
[2022-05-06] MEDS ORDERED: NEOSTIGMINE 1 MG/ML 10 ML VIAL ONE (11:04)
[2022-05-06] MEDS ORDERED: PHENYLEPHRINE-0.9% NACL SYG 1,000 MCG/10 ML SYRINGE ONE (11:04)
[2022-05-06] MEDS ORDERED: ceFAZolin 1,000 MG VIAL ONE (11:04)
[2022-05-06] MEDS ORDERED: GLYCOPYRROLATE 0.2 MG/ML 2 ML VIAL ONE (11:04)
[2022-05-06] MEDS ORDERED: LIDOCAINE 1%-EPI 1:100,000 20 ML VIAL SQ ONE ×2 (11:41)
[2022-05-06] MEDS ORDERED: BACITRACIN OINT 1 EACH PACKET TOPICAL ONE (13:37)
[2022-05-06 14:13] VITALS: RESP 16
[2022-05-06 14:48] VITALS: BP 117/62; PULSE 79
--- NOTE | 2022-05-09 17:55 | OP ---
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 ANESTHESIA: General. PROCEDURES PERFORMED: Exploration of left face and attempted excision of left facial/parotid mass: Aborted. Size of mass was approximately 1 x 1.5 x 2 cm. COMPLICATIONS: None. ESTIMATED BLOOD LOSS: Less than 5 mL. DESCRIPTION OF PROCEDURE: The patient was placed on the operating table in supine position, and after uneventful induction and endotracheal intubation, satisfactory general anesthesia was obtained. Next, the patient's left magdiel-face was prepped and draped in usual and customary fashion. Next, palpation of the mass in question revealed it to be somewhat oblong and oriented in a horizontal manner. That was to say, this lesion was not oriented in such a fashion as to fall into one of the normal facial skin tension lines or lines of Langerhans. Therefore, in an effort to avoid having to use a skin graft or flap for closure, it was decided to place the incision parallel to the orientation of the mass. Using a [employer] marking pen, the proposed incision was outlined in an elliptical fashion located over the mass. The area was injected with a small amount of 0.5% lidocaine with epinephrine. Care was taken to avoid injecting anywhere near the location of the facial nerve trunk. This mass appeared to be located more near the periphery of the parotid gland. Next, using a #15 scalpel, an incision was made through skin and subcutaneous tissue down to the fascia overlying the mass. Next, using a combination of blunt and sharp dissection with pushers and curved hemostats, the dissection was started. It was to be noted that similar previous masses were noted to be located in the most superficial aspect of this parotid gland and were easily excised without going anywhere near the facial nerve branches . However, as the dissection continued bluntly, it was noted that this oblong mass was oriented between 2 of the peripheral branches of the facial nerve. It appeared that these branches most likely were the zygomatic and the buccal branch. The nerves were identified and isolated. Initially, I was able to dissect the mass away from the zygomatic branch without too much difficulty and without any injury whatsoever to the nerve. However, the buccal branch of the nerve appeared to be more closely associated with this mass. Even an attempted retrograde dissection of this branch of the facial nerve was seen as too concerning to proceed with. Therefore, after approximately 2 hours of dissection, the decision was made to abort the procedure out of concern regarding possible injury to one of the peripheral branches of the facial nerve. It appeared obvious that this mass was more involved with the substance of the superficial portion of the parotid gland than previous masses . At no time were any portions of the facial nerve injured, transected, cut, or in any way disrupted. All branches that were encountered were easily visible, isolated, and noted to be completely intact. Closure was accomplished by using 5-0 rapid absorbing Vicryl to close the investing fascia of the parotid gland over the mass in an interrupted fashion. Next, the subcutaneous fat tissues were approximated using 4-0 rapid absorbing Vicryl suture in an interrupted fashion. The skin edges were brought together nicely by using 4-0 rapid absorbing Vicryl in an interrupted subcuticular fashion. Final approximation of the skin edges was accomplished using surgical justen and a few interrupted 5-0 chromic sutures. The closure appeared to be quite satisfactory. At no point were any branches of the nerve entrapped in any of the suture material. At this point, the procedure was terminated. There was no specimen. The patient tolerated the procedure well. Estimated blood loss was less than 5 mL. The patient was returned to recovery room in satisfactory condition. ADDENDUM: It was to be noted that when the patient was awake in the recovery room, I personally examined the patient's facial nerve function by having the patient smile, grimace, and tightly close her eyes. All branches of the left facial nerve were found to be functioning normally with no evidence of any paralysis or paresis. This was also confirmed by the nurse attending to the patient. MMODL / IJN: [id number] / [email or web address]
== END 2022-05-06 15:50 | disposition home or self-care (01) ==
LOC: OR 09:17
PROVIDERS: ATTEND Otolaryngology
DX: R22.0 Localized swelling, mass and lump, head (principal); Z88.1 Allergy status to other antibiotic agents; J43.9 Emphysema, unspecified; Z79.51 Long term (current) use of inhaled steroids; E03.9 Hypothyroidism, unspecified; Z79.890 Hormone replacement therapy; E78.00 Pure hypercholesterolemia, unspecified; M19.90 Unspecified osteoarthritis, unspecified site; Z79.891 Long term (current) use of opiate analgesic; Z79.899 Other long term (current) drug therapy; Z98.890 Other specified postprocedural states; Z90.49 Acquired absence of other specified parts of digestive tract; Z90.710 Acquired absence of both cervix and uterus; J34.2 Deviated nasal septum; J34.3 Hypertrophy of nasal turbinates
CPT/HCPCS: 42415; 21012; J0330; J1100; J2710; J2405; J0690; J3010; J0131; J2370; J2704; J2001

== ENCOUNTER → 2022-05-26 | Outpatient (CLI) | payer MEDICARE ==
[2022-05-26 12:45] LABS: African American GFR (CKD) >90 (>60 ml/min/1.73 sqM); Blood Urea Nitrogen 22 mg/dL (7-17); Non-African American GFR(CKD) 83 (>60 ml/min/1.73 sqM)
--- NOTE | 2022-05-26 14:15 | CT ---
EXAMINATION TYPE: CT soft tissue neck w con DATE OF EXAM: 05/26/2022 HISTORY: Left sided facial and neck swelling after recent biopsy. COMPARISON: CT neck December 07, [address] DLP: 368 mGycm. Automated Exposure Control for Dose Reduction was Utilized. TECHNIQUE: CT scan of the neck is performed with IV Contrast, patient injected with 70 mL of Isovue 300, axial images are obtained, coronal and sagittal reformatted images are reviewed. FINDINGS: Airway: No gross abnormality seen. Parotid/submandibular glands: No gross abnormality seen. Carotid/Vascular Structures: Vvol-ma-hsradhhmrmgxj plaque right carotid bulb is redemonstrated. Osseous Structures: There is scoliotic curvature redemonstrated. Ossific fusion of the C5 and C6 vert ebra is redemonstrated. Mild to moderate disc space narrowing C4-C5 level redemonstrated. Moderate to severe disc space narrowing C6-C7 level C7-T1 level is redemonstrated. Fvzi-cw-qrolvlmt multilevel s purring and disc space narrowing in the upper thoracic spine redemonstrated. Posterior decompression in the upper cervical spine again seen. Multilevel uncovertebral facet degenerative changes bilateral ly are redemonstrated. Osseous structures remain demineralized. Other: On current study adjacent to horizontal ramus left mandible abutting the masseter muscle there is a palpable oval nodule oval hypodense lesion 1.9 x 1.4 cm series 3 image 70 slightly more anterio r and slightly superior in location and larger or new versus prior study where there was posterior ne ar 1.0 cm lesion which cannot distinctly clearly see. There is artifact from cavitary fillings making evaluation of this level slightly suboptimal. There is more ill-defined fluid at this level seen phil juan m prior studies. Remainder of the neck shows no new greater than 1 cm neck adenopathy. No definitive new greater than 1 cm masses are seen. There is exophytic 9 mm hyperdense lesion from the left submandibular soft tissue axial image 50 rede monstrated unchanged from prior studies favoring benign dermatologic lesion IMPRESSION: As above. Prior near 1.0 cm palpable lesion now not clearly seen. Correlate for complete excisional biopsy. There is new thin-walled small fluid collection and mild fat stranding favoring po stsurgical seroma from recent biopsy at this level. Otherwise no suspicious new mass or adenopathy is seen. Correlate clinically.
== END | disposition home or self-care (01) ==
LOC: RADCTMAIN 11:48
PROVIDERS: ATTEND Otolaryngology
DX: R22.1 Localized swelling, mass and lump, neck (principal)
CPT/HCPCS: 82565; 84520; 70491; 36415; Q9967

== ENCOUNTER → 2024-02-02 | Outpatient (CLI) | payer MEDICARE ==
--- NOTE | 2024-02-06 12:27 | MR ---
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 TECHNIQUE: Multi planar, multi sequence imaging was performed of the neck soft tissues. MR contrast: IV Contrast: 6.5 cc Gadavist FINDINGS: Residual parotid gland tissue seen bilaterally no masses definitively visualized. There is some streaky edema around the left supervisor incising space and parotid gland. Trace mucosal thickening left maxillary sinus. The glottis appears unremarkable. Several nonenlarged anterior chain lymph nodes a re identified. There is no evidence to suggest a soft tissue mass. The cervical vertebral bodies have preserved heights and alignment. Multilevel disc desiccation and anterior osteophytosis are present. The cervical spinal cord demonstrates a normal appearance. Left shoulder cuff joint effusion partially visualized. IMPRESSION: 1. Edema around the left parotid gland myofascial planes without focal mass identified. No lymphaden opathy. 2. Left shoulder joint effusion possibly underlying tendinopathy/rotator cuff tear. Correlate with d edicated MRI shoulder. [facility], , 02/06/2024 12:25 PM
== END | disposition home or self-care (01) ==
LOC: RADMRIMAIN 16:47
PROVIDERS: ATTEND Radiology Radiation Oncology
DX: C07 Malignant neoplasm of parotid gland
CPT/HCPCS: 70543